=== PATIENT | female | born 1995 | race Caucasian/White ===

== ENCOUNTER 2020-02-12 16:24 | Outpatient (CLI) | payer MEDICAID ==
[2020-02-12 17:11] LABS: APPEARANCE,URINE CLEAR; BILIRUBIN,URINE NEGATIVE (NEGATIVE); COLOR,URINE STRAW; GLUCOSE, URINE NEGATIVE (NEGATIVE); KETONES,URINE NEGATIVE (NEGATIVE); LEUKOCYTE ESTERASE,URINE NEGATIVE (NEGATIVE); NITRITE,URINE NEGATIVE (NEGATIVE); PROTEIN,URINE NEGATIVE (NEGATIVE); URINE SPECIFIC GRAVITY 1.005; UROBILINOGEN,URINE NEGATIVE mg/dL (<2.0)
[2020-02-12 17:36] LABS: URINE AMPHETAMINES SCREEN NEGATIVE; URINE BARBITURATES SCREEN NEGATIVE; URINE BENZODIAZEPINES SCREEN NEGATIVE; URINE COCAINE SCREEN NEGATIVE; URINE METHADONE SCREEN NEGATIVE; URINE PHENCYCLIDINE SCREEN NEGATIVE
[2020-02-12 17:45] LABS: URINE MARIJUANA (THC) SCREEN UNCONFIRMED POSITIVE
--- NOTE | 2020-02-12 18:01 | Non Stress Test Report ---
Non Stress Test Datetime Report Generated by CPN: 02/12/2020 18:01 DEMOGRAPHIC EGA NST: 35.6 VITAL SIGNS Temperature - NST: 97.7 Pulse - NST: 80 RESP - NST: 18 NBPSYS NST: 102 NBPDIA NST: 59 MONITORING Monitor Explained: Monitor Explained; Patient Verbalized Understanding Time on Monitor: 02/12/2020 16:40 Time off Monitor: 02/12/2020 17:00 NST Duration: 20 NST INTERVENTIONS NST Interventions: PO Hydration Physician Notified NST: Dr. Mccullough BABY A: [id number] BABY A Movement : Present Contraction Frequency : Occaisonal FHR Baseline : 135 Accelerations : 15X15 Decelerations : None Variability : Moderate 6-25bpm NST Review: Meets Criteria for Reactive NST NST Review and Verified By : NOHELIA Tucker NST Results: Reactive NST REPORT Report Trigger: Send Report
[2020-02-12] MEDS: HYDROXYZINE PAMOATE 50 MG CAPSULE PO ONE (18:06)
[2020-02-12] MEDS: HYDROXYZINE PAMOATE 50 MG CAPSULE ONE (18:06)
== END 2020-02-12 18:09 | disposition home or self-care (01) ==
LOC: LC 16:24
PROVIDERS: ATTEND Obstetrics & Gynecology Gynecology
DX: O47.03 False labor before 37 completed weeks of gestation, third trimester (principal); Z3A.35 35 weeks gestation of pregnancy; Z02.83 Encounter for blood-alcohol and blood-drug test
CPT/HCPCS: 59025; 81001; 80307; G0480 ×2; J3490; 80349